=== PATIENT | female | born 1985 | race Caucasian/White ===

== ENCOUNTER 2021-03-17 11:37 | Inpatient (IN) ==
--- NOTE | 2021-03-17 12:18 | ERNOTE ---
Medical Problem HPI - General Chief Complaint: General Assessment Time Seen by Provider: 03/17/21 12:08 Source: patient Exam Limitations: no limitations - Immun/Allergies/Home Medications Immunizations: IMMUNIZATION HX Immunizations Up to Date Yes Allergies/Adverse Reactions: Allergies No Known Allergies Allergy (Verified 03/17/21 13:19) Home Medications: HOME MEDICATIONS NK 03/17/21 [Last Taken Unknown] - History of Present History Narrative: Patient has been losing weight for the past month or so approximately 20 pounds. She has had some nausea vomiting but lately has just had some lack of appetite. She has been a heavy drinker but stopped a couple of weeks ago. Timing: getting worse Severity: moderate Review of Systems - Review of Systems Constitutional: Present: chills, fatigue. Absent: recent illness, fever EYE: Absent: vision changes ENT: Absent: nose congestion, nasal drainage Respiratory: Absent: shortness of breath, cough Cardiology: Present: palpitations. Absent: chest pain Gastrointestinal/Abdominal: Present: See HPI Genitourinary: Absent: dysuria Musculoskeletal: Present: muscle pain - Diffuse Skin: Present: change in color - Yellow Neurological: Present: weakness - Generalized. Absent: headache Endocrine: Absent: excessive sweating Medical History (Last Reviewed 03/17/21 @ 13:12 by Denzel Hammonds DO) Allergic rhinitis Gastric ulcer Kidney stone Surgical History: Surgical History (Last Reviewed 03/17/21 @ 13:12 by Denzel Hammonds DO) No pertinent past surgical history Family History: Family History (Last Reviewed 03/17/21 @ 13:12 by Denzel Hammonds DO) Father Diabetes Mother Alive and well Social History: (Last Reviewed 03/17/21 @ 13:12 by Denzel Hammonds DO) Social History: Marital status: household members: family number of children: 2 current occupational status: employed Highest level of school completed/degree received: high school graduate Sexually Active: Yes Service: No Tobacco: Smoking Status: Former smoker tobacco type: cigarettes how long ago did patient quit smokin week Alcohol: alcohol intake: current alcohol intake frequency: 0-2 drinks per day Substance Use: substance use type: does not use Dietary Habits: caffeine: Yes Physical Exam - Physical Exam General Appearance: Present: wd/wn, alert, mild distress Head Exam: Present: normal inspection, no evidence of injury Eye Exam: PERRL: bilateral, Scleral icterus: bilateral Ears, Nose, Throat: Present: normal except - - Poor dental hygiene throughout Neck: Present: normal inspection, nontender Respiratory: Present: no respiratory distress, normal breath sounds, lungs clear Cardiovascular/Chest: Present: no murmur, tachycardia, other - Very thin. Absent: chest tenderness Gastrointestinal/Abdominal: Present: normal bowel sounds, tenderness - Mild epigastric left upper quadrant Back Exam: Present: normal inspection Extremity Exam: Present: normal range of motion, pedal edema - bilateral Neurological Exam: Present: alert, oriented, normal mood/affect, no motor/sensory deficits Skin Exam: Present: warm/dry, jaundice - mild Lymphatic Exam: Present: no adenopathy Progress - Results and Orders Patient's Lab Results:: I have reviewed the patient's lab results. - Vital Signs Patient's Vital Signs:: I have reviewed the patient's vital signs. Vital Signs: Vital Signs 03/17/21 11:49 Temperature 36.9 C Pulse Rate 113 H Respiratory Rate 17 Blood Pressure 99/63 O2 Sat by Pulse Oximetry 99 - Progress/Reassessment Chief Complaint: General Assessment Progress Note-Subjective: 03/17/21 16:[address] Taylor he did not feel like this was surgical and seemed to be primarily liver. Departure Clinical Impression: Jaundice Pancreatitis Qualifiers: Chronicity: acute Pancreatitis type: unspecified pancreatitis type Acute pancreatitis complication: no infection or necrosis Qualified Code(s): K85.90 - Acute pancreatitis without necrosis or infection, unspecified Pneumonia Qualifiers: Pneumonia type: due to unspecified organism Laterality: right Lung location: lower lobe of lung Qualified Code(s): J18.9 - Pneumonia, unspecified organism - Departure Disposition: Still a patient Condition: Good
[2021-03-17 12:19] LABS: Hematocrit 26.3 % (37.0-47.0); Hemoglobin 9.3 gm/dL (12.5-16.0); Mean Cell Volume 96.7 fl (78-100); Mean Corpuscular Hemoglobin 34.2 pg (27-31); Mean Corpuscular Hgb Conc 35.4 g/dl (32-36); Mean Platelet Volume 11.7 fl (8-12.5); Neutrophil # 14.1 K/mm3 (1.3-6.0); Neutrophil % 86.1 % (42-75.0); Platelet Count 338 K/mm3 (150-450); Red Blood Count 2.72 M/mm3 (4.2-5.4); Red Cell Distribution Width 16.9 % (11.5-14.0); White Blood Count 16.4 K/mm3 (4.0-10.5)
[2021-03-17 12:40] LABS: Albumin * 2.2 gm/dl (3.4-5.0); Anion Gap 11.1 mmol/L (6.8-13.8); BUN/Creatinine Ratio 19.3 (9.0-21.6); Bilirubin, Total 2.8 mg/dL (0.0-1.1); Ca. Corrected For Albumin 8.9 mg/dL (8.4-10.2); Calcium * 7.8 mg/dL (7.9-10.9); Carbon Dioxide 31.6 mmol/L (24-32.6); Potassium 2.7 mmol/L (3.4-4.6); Total Protein 6.8 gm/dL (6.2-8.2)
[2021-03-17 13:02] LABS: Urine Bilirubin 3 mg/dl (NEGATIVE); Urine Blood 50 /ul (NEGATIVE); Urine Ketone Negative (NEGATIVE); Urine Nitrite Negative (NEGATIVE); Urine Protein 15 mg/dL (NEGATIVE); Urine Urobilinogen 4 EU/dl (NORMAL)
[2021-03-17] MEDS ORDERED: DIATRIZOATE MEGLUMINE, SODIUM 30 ML BTL PO ONE (13:08)
[2021-03-17] MEDS ORDERED: NORMAL SALINE 1,000 ML IV ONE (13:16)
[2021-03-17 13:18] LABS: Cocaine Ur Negative (NEGATIVE); Urine Barbiturate Negative (NEGATIVE); Urine Opiates Negative (NEGATIVE); Urine PCP Negative (NEGATIVE); Urine THC Negative (NEGATIVE)
[2021-03-17 13:21] LABS: Urine Appearance Slightly Cloudy (CLEAR); Urine Bacteria 2+; Urine Benzodiazepines Positive (NEGATIVE); Urine Color Amber; Urine Hyaline Cast 0-5 /LPF; Urine WBC TRACE /hpf (0-5)
[2021-03-17 13:42] LABS: Prothrombin Time (Patient) 15.3 Seconds (9.1-10.7)
[2021-03-17 13:43] LABS: INR 1.5 INR (0.92-1.08); Partial Thrombolplastin Time 27.8 Seconds (24-32)
[2021-03-17] MEDS: POTASSIUM CHLORIDE IN WATER 100 ML IV SCH ×4 (15:34→19:30)
[2021-03-17] MEDS: NORMAL SALINE 1,000 ML IV PRN ×2 (15:48→23:28)
[2021-03-17] MEDS ORDERED: cefTRIAXone SODIUM 1,000 MG/100 ML BAG IV ONE (16:56)
[2021-03-17] MEDS ORDERED: KETOROLAC TROMETHAMINE 30 MG/ML VIAL IV ONE (17:24)
[2021-03-17] MEDS ORDERED: KETOROLAC TROMETHAMINE 30 MG/ML VIAL ONE (17:25)
--- NOTE | 2021-03-17 20:25 | HP ---
Chief Complaint - Chief Complaint Date of Service: 03/17/21 Time of Service: 20:24 Chief Complaint: RUQ pain History of Present Illness: 36-year-old female with past history of gastric ulcer presented to the ER today with complaints of abdominal pain, weight loss, nausea and vomiting. She denies blood in her emesis or stool. She has a history of alcoholism and states she was a heavy drinker but quit roughly 3 weeks ago. No signs of withdrawal. In the ER she was found to have a white count of 16.4, and elevated INR at 1.5 with an elevated PT of 15.3, she was hypokalemic at 2.7, she had a lactic acid initially at 3.3 that trended down to 1.2, and she had a lipase of 1012. Her AST was also elevated at 101 consistent with alcohol abuse and her total bili was 2.8. CT scan of her belly showed an enlarged liver measuring 20 cm cranioc audal but no inflammatory changes around the pancreas to suggest pancreatitis. Free fluid seen within the pelvis. Nondistended gallbladder. Patient was admitted for pancreatitis and hyperbilirubinemia. She got to the floor and evaluated she had some mild abdominal discomfort but otherwise was feeling fine. Her blood pressure has ranged anywhere from 110/70 -92/62. She has been tachycardic but I think this likely due to her being slightly dehydrated from poor intake and vomiting. Dr. Taylor looked at her CT scan after the ER provider notified him of her presentation and he was not concerned with any acute abdominal processes at this time and feels like her bilirubin is due to her alcoholism and recommended just monitor. Of note patient was also found to be anemic at 9.3. Patient admitted for acute pancreatitis and will receive fluids and started on clear liquid diet. We will repeat blood work in the morning. Medical History (Last Reviewed 03/17/21 @ 20:39 by Melody Sheets RN) Allergic rhinitis Gastric ulcer Kidney stone Surgical History: Surgical History (Last Reviewed 03/17/21 @ 20:39 by Melody Sheets RN) No pertinent past surgical history Family History: Family History (Last Reviewed 03/17/21 @ 20:39 by Melody Sheets RN) Father Diabetes Mother Alive and well Social History: (Last Updated 03/17/21 @ 20:41 by Melody Sheets RN) Social History: Marital status: household members: family number of children: 2 parent marital status: current occupational status: employed Highest level of school completed/degree received: high school graduate Sexually Active: Yes how many partners: 1 Service: No Tobacco: Smoking Status: Former smoker tobacco type: cigarettes how long ago did patient quit smokin week quit status: quit date established Alcohol: alcohol intake: former details: Quit 2-3 weeks ago Substance Use: substance use type: does not use Dietary Habits: caffeine: Yes Review Of Systems (GEN) - Review of Systems Generalized/Overall Review: Present: Weakness, Weight loss EENTM: Present: No Symptoms Reported Respiratory: Absent: Cough, Shortness of Breath Cardiac: Present: No Symptoms Reported Abdominal: Present: Nausea, Vomiting, Abdominal Pain. Absent: Hematemesis, Melena, Bright blood from rectum Genitourinary: Present: No Symptoms Reported Musculoskeletal: Present: No Symptoms Reported Neurological: Present: No Symptoms Reported Skin: Present: No Symptoms Reported Endocrine: Present: No Symptoms Reported Immunizations: IMMUNIZATION HX Immunizations Up to Date Yes Allergies/Adverse Reactions: Allergies Allergy/AdvReac Type Severity Reaction Status Date / Time No Known Allergies Allergy Verified 03/17/21 13:19 Home Medications: HOME MEDICATIONS NK 03/17/21 [Last Taken Unknown] Exam - Exam Vital Signs: Vital Signs - Last Taken Temp 36.2 C 03/17/21 19:47 Pulse 101 H 03/17/21 19:47 Resp 16 03/17/21 19:47 BP 94/53 03/17/21 19:47 Pulse Ox 98 03/17/21 19:47 Constitutional: Present: Alert, Oriented x3, Mild distress, Thin and frail ENT Exam: Present: hearing grossly normal, other - Poor dentition. Absent: nasal congestion, nasal drainage Eye Exam: bilateral eye: normal inspection, EOMI, scleral icterus Neck: Present: non-tender, supple Respiratory: Present: lungs clear, normal breath sounds Cardiovascular/Chest: Present: no murmur, tachycardia Peripheral Pulses: dorsalis-pedis (R): 2+, dorsalis-pedis (L): 2+ Abdomen: Present: soft, nondistended, tender Extremity: Present: non-tender, normal inspection, normal capillary refill Skin Exam: Present: warm/dry, jaundice - mild Appearance: Present: appropriate appearance Thoughts: Present: normal thought pattern, normal mood /affect. Absent: no apparent hallucination Diagnostic Studies: Abnormal Lab Results 03/17/21 03/17/21 03/17/21 Range/Units 12:10 12:10 12:10 WBC 16.4 H (4.0-10.5) K/mm3 RBC 2.72 L (4.2-5.4) M/mm3 Hgb 9.3 L (12.5-16.0) gm/dL Hct 26.3 L (37.0-47.0) % MCH 34.2 H (27-31) pg RDW 16.9 H (11.5-14.0) % Immature Gran % (Auto) 0.70 H (0.001-0.429) % Immature Gran # (Auto) 0.11 H (0.000-0.0310) K/mm3 Neutrophils % 86.1 H (42-75.0) % Lymphocytes % 5.9 L (20-51) % Neutrophils # 14.1 H (1.3-6.0) K/mm3 Lymphocytes # 0.97 L (1.5-3.5) k/mm3 Monocytes # 1.1 H (0.0-1.0) k/mm3 PT (9.1-10.7) Seconds INR (Anticoag Therapy) (0.92-1.08) INR Potassium 2.7 L (3.4-4.6) mmol/L Chloride 93 L (97-106) mmol/L Random Glucose 111 H (70-110) mg/dL Lactic Acid, Venous 3.3 H* (0.4-2.0) mmol/L Calcium 7.8 L (7.9-10.9) mg/dL Total Bilirubin 2.8 H (0.0-1.1) mg/dL AST 101 H (0-48) U/L Albumin 2.2 L (3.4-5.0) gm/dl Lipase 1012 H (73-393) U/L Urine Protein (NEGATIVE) mg/dL Urine Blood (NEGATIVE) /ul Urine Bilirubin (NEGATIVE) mg/dl Urine Urobilinogen (NORMAL) EU/dl Urine RBC (0-5) /hpf Urine WBC (0-5) /hpf Ur Epithelial Cells (0-5) /hpf Urine Bacteria (NONE) Hyaline Casts (NONE) /LPF U Benzodiazepines Scrn (NEGATIVE) 03/17/21 03/17/21 03/17/21 Range/Units 12:45 12:45 13:25 WBC (4.0-10.5) K/mm3 RBC (4.2-5.4) M/mm3 Hgb (12.5-16.0) gm/dL Hct (37.0-47.0) % MCH (27-31) pg RDW (11.5-14.0) % Immature Gran % (Auto) (0.001-0.429) % Immature Gran # (Auto) (0.000-0.0310) K/mm3 Neutrophils % (42-75.0) % Lymphocytes % (20-51) % Neutrophils # (1.3-6.0) K/mm3 Lymphocytes # (1.5-3.5) k/mm3 Monocytes # (0.0-1.0) k/mm3 PT 15.3 H (9.1-10.7) Seconds INR (Anticoag Therapy) 1.50 H (0.92-1.08) INR Potassium (3.4-4.6) mmol/L Chloride (97-106) mmol/L Random Glucose (70-110) mg/dL Lactic Acid, Venous (0.4-2.0) mmol/L Calcium (7.9-10.9) mg/dL Total Bilirubin (0.0-1.1) mg/dL AST (0-48) U/L Albumin (3.4-5.0) gm/dl Lipase (73-393) U/L Urine Protein 15 H (NEGATIVE) mg/dL Urine Blood 50 H (NEGATIVE) /ul Urine Bilirubin 3 H (NEGATIVE) mg/dl Urine Urobilinogen 4 H (NORMAL) EU/dl Urine RBC 10-25 H (0-5) /hpf Urine WBC Trace H (0-5) /hpf Ur Epithelial Cells >25 H (0-5) /hpf Urine Bacteria 2+ H (NONE) Hyaline Casts 0-5 H (NONE) /LPF U Benzodiazepines Scrn Positive H (NEGATIVE) Laboratory Results WBC 16.4 K/mm3 (4.0-10.5) H 03/17/21 12:10 RBC 2.72 M/mm3 (4.2-5.4) L 03/17/21 12:10 Hgb 9.3 gm/dL (12.5-16.0) L 03/17/21 12:10 Hct 26.3 % (37.0-47.0) L 03/17/21 12:10 MCV 96.7 fl (78-100) 03/17/21 12:10 MCH 34.2 pg (27-31) H 03/17/21 12:10 MCHC 35.4 g/dl (32-36) 03/17/21 12:10 RDW 16.9 % (11.5-14.0) H 03/17/21 12:10 Plt Count 338 K/mm3 (150-450) 03/17/21 12:10 MPV 11.7 fl (8-12.5) 03/17/21 12:10 Immature Gran % (Auto) 0.70 % (0.001-0.429) H 03/17/21 12:10 Immature Gran # (Auto) 0.11 K/mm3 (0.000-0.0310) H 03/17/21 12:10 Neutrophils % 86.1 % (42-75.0) H 03/17/21 12:10 Lymphocytes % 5.9 % (20-51) L 03/17/21 12:10 Monocytes % 6.4 % (0.0-9) 03/17/21 12:10 Eosinophils % 0.7 % (0.0-3.0) 03/17/21 12:10 Basophils % 0.2 % (0.0-1.0) 03/17/21 12:10 Nucleated RBC % 0.0 k/mm3 (0-1) 03/17/21 12:10 Neutrophils # 14.1 K/mm3 (1.3-6.0) H 03/17/21 12:10 Lymphocytes # 0.97 k/mm3 (1.5-3.5) L 03/17/21 12:10 Monocytes # 1.1 k/mm3 (0.0-1.0) H 03/17/21 12:10 Eosinophils # 0.1 k/mm3 (0.0-0.7) 03/17/21 12:10 Absolute Basophils 0.0 k/mm3 (0.0-0.1) 03/17/21 12:10 PT 15.3 Seconds (9.1-10.7) H 03/17/21 13:25 INR (Anticoag Therapy) 1.50 INR (0.92-1.08) H 03/17/21 13:25 PTT (James) 27.8 Seconds (24-32) 03/17/21 13:25 Sodium 133 mmol/L (132-142) 03/17/21 12:10 Plasma Sodium 133 mmol/L (130-142) 03/17/21 12:10 Potassium 2.7 mmol/L (3.4-4.6) L 03/17/21 12:10 Chloride 93 mmol/L (97-106) L 03/17/21 12:10 Carbon Dioxide 31.6 mmol/L (24-32.6) 03/17/21 12:10 Anion Gap 11.1 mmol/L (6.8-13.8) 03/17/21 12:10 BUN 16 mg/dL (3-23) 03/17/21 12:10 Creatinine 0.83 mg/dL (0.4-1.4) 03/17/21 12:10 Est GFR (Non-Af Amer) 82 mL/min (60-130) 03/17/21 12:10 BUN/Creatinine Ratio 19.3 (9.0-21.6) 03/17/21 12:10 Random Glucose 111 mg/dL (70-110) H 03/17/21 12:10 Lactic Acid, Venous 1.2 mmol/L (0.4-2.0) 03/17/21 17:00 Calcium 7.8 mg/dL (7.9-10.9) L 03/17/21 12:10 Calcium Adj for Albumin 8.9 mg/dL (8.4-10.2) 03/17/21 12:10 Total Bilirubin 2.8 mg/dL (0.0-1.1) H 03/17/21 12:10 AST 101 U/L (0-48) H 03/17/21 12:10 ALT 47 U/L (19-67) 03/17/21 12:10 Alkaline Phosphatase 122 U/L (50-170) 03/17/21 12:10 Total Protein 6.8 gm/dL (6.2-8.2) 03/17/21 12:10 Albumin 2.2 gm/dl (3.4-5.0) L 03/17/21 12:10 Amylase 100 U/L (25-115) 03/17/21 12:10 Lipase 1012 U/L (73-393) H 03/17/21 12:10 Urine Color [place] 03/17/21 12:45 Urine Appearance Slightly cloudy (CLEAR) 03/17/21 12:45 Urine pH 6.0 pH (5.0-7.0) 03/17/21 12:45 Ur Specific [place] 1.020 SP.GR. (1.005-1.010) 03/17/21 12:45 Urine Protein 15 mg/dL (NEGATIVE) H 03/17/21 12:45 Urine Glucose (UA) Negative mg/dL (NEGATIVE) 03/17/21 12:45 Urine Ketones Negative mg/dL (NEGATIVE) 03/17/21 12:45 Urine Blood 50 /ul (NEGATIVE) H 03/17/21 12:45 Urine Nitrate Negative (NEGATIVE) 03/17/21 12:45 Urine Bilirubin 3 mg/dl (NEGATIVE) H 03/17/21 12:45 Urine Urobilinogen 4 EU/dl (NORMAL) H 03/17/21 12:45 Ur Leukocyte Esterase Negative /ul (NEGATIVE) 03/17/21 12:45 Urine RBC 10-25 /hpf (0-5) H 03/17/21 12:45 Urine WBC Trace /hpf (0-5) H 03/17/21 12:45 Ur Epithelial Cells >25 /hpf (0-5) H 03/17/21 12:45 Urine Bacteria 2+ (NONE) H 03/17/21 12:45 Hyaline Casts 0-5 /LPF (NONE) H 03/17/21 12:45 Urine Culture Comments No culture indicated 03/17/21 12:45 Urine HCG, Qual Negative (NEGATIVE) 03/17/21 12:45 Urine Opiates Screen Negative (NEGATIVE) 03/17/21 12:45 Barbiturate Screen Negative (NEGATIVE) 03/17/21 12:45 Ur Phencyclidine Scrn Negative (NEGATIVE) 03/17/21 12:45 Urine Amphetamine Negative (NEGATIVE) 03/17/21 12:45 U Benzodiazepines Scrn Positive (NEGATIVE) H 03/17/21 12:45 Urine Cocaine Screen Negative (NEGATIVE) 03/17/21 12:45 Urine Marijuana (THC) Negative (NEGATIVE) 03/17/21 12:45 SARS-CoV-2 (PCR) Not detected (NotDetected) 03/17/21 17:18 Assessment/Plan - Narrative Narrative: 36-year-old female was admitted for acute pancreatitis but this appears to be a mild case. She does have hyperbilirubinemia and likely will need outpatient work-up with hepatology but I am assuming this is all due to her alcohol abuse. Minimal pain and no acute abnormality seen on her abdominal CT scan aside from an enlarged liver and some free fluid in her pelvis. Patient's physical exam fairly benign for the most part. Patient is likely dehydrated resulted in her mild tachycardia and soft blood pressures. She will receive IV fluid overnight and will repeat lab work in the morning. Patient is mildly anemic, again unsure of why whether this is due to malnutrition but she denies any bleeding in her emesis or in her stools. Will repeat CBC in the morning. Patient not requiring any pain medication, none is been offered ordered. Nurse will notify me if she does have any pain that needs to be addressed over the time being she is comfortable. Patient likely will be discharged home tomorrow as long as everything remains stable and she can establish with a PCP and have outpatient work-up for her liver pathology. No signs of withdrawal from her alcoholism, patient states she has been drinking. We will replenish her potassium today and repeat in the morning to make sure that this is has come up. Is under lab work remained stable and she can be discharged with further outpatient work-up. Patient was pleasant and had no other concerns. Not currently nauseous, not requiring any antinausea medicine. SCDs to be worn while in bed. Clears ordered for her diet. Nurse will call questions or concerns. - Assessment/Plan (1) Pancreatitis Problem: Acute Qualifiers: Chronicity: acute Pancreatitis type: unspecified pancreatitis type Acute pancreatitis complication: no infection or necrosis Qualified Code(s): K85.90 - Acute pancreatitis without necrosis or infection, unspecified (2) Hypokalemia Problem: Acute (3) Hyperbilirubinemia Problem: Acute (4) Jaundice Problem: Acute (5) Pneumonia Problem: Acute Qualifiers: Pneumonia type: due to unspecified organism Laterality: right Lung location: lower lobe of lung Qualified Code(s): J18.9 - Pneumonia, unspecified organism (6) Anemia Problem: Acute
[2021-03-17] MEDS ORDERED: POTASSIUM CITRATE 10 MEQ TABLET PO SCH (21:00)
[2021-03-17] MEDS: POTASSIUM CHLORIDE 10 MEQ TABLET.SA PO SCH (23:27)
[2021-03-18 06:22] LABS: Mean Cell Volume 96.4 fl (78-100); Mean Corpuscular Hemoglobin 34.1 pg (27-31); Mean Corpuscular Hgb Conc 35.3 g/dl (32-36); Mean Platelet Volume 11.6 fl (8-12.5); Neutrophil # 11.3 K/mm3 (1.3-6.0); Neutrophil % 84.3 % (42-75.0); Platelet Count 265 K/mm3 (150-450); Red Blood Count 2.23 M/mm3 (4.2-5.4); White Blood Count 13.4 K/mm3 (4.0-10.5)
[2021-03-18 07:20] LABS: Hematocrit 21.5 % (37.0-47.0)
[2021-03-18 07:21] LABS: Hemoglobin 7.6 gm/dL (12.5-16.0)
[2021-03-18] MEDS: NORMAL SALINE 1,000 ML IV PRN (07:28)
[2021-03-18] MEDS: POTASSIUM CHLORIDE 10 MEQ TABLET.SA PO SCH (08:20)
[2021-03-18 11:47] LABS: Anion Gap 13.7 mmol/L (6.8-13.8); BUN/Creatinine Ratio 25.5 (9.0-21.6); Calcium * 6.7 mg/dL (7.9-10.9); Carbon Dioxide 26.7 mmol/L (24-32.6); Estimated Creat Clear 145.4; Potassium 3.4 mmol/L (3.4-4.6)
[2021-03-18 16:40] LABS: Hematocrit 26.8 % (37.0-47.0); Hemoglobin 9.3 gm/dL (12.5-16.0); Mean Corpuscular Hgb Conc 34.7 g/dl (32-36); Mean Platelet Volume 11.3 fl (8-12.5); Platelet Count 264 K/mm3 (150-450); Red Blood Count 2.82 M/mm3 (4.2-5.4); White Blood Count 12.7 K/mm3 (4.0-10.5)
--- NOTE | 2021-03-18 17:02 | DS ---
(1) Pancreatitis Problem: Acute Qualifiers: Chronicity: acute Pancreatitis type: unspecified pancreatitis type Acute pancreatitis complication: no infection or necrosis Qualified Code(s): K85.90 - Acute pancreatitis without necrosis or infection, unspecified (2) Hypokalemia Problem: Acute (3) Hyperbilirubinemia Problem: Acute (4) Jaundice Problem: Acute (5) Pneumonia Problem: Acute Qualifiers: Pneumonia type: due to unspecified organism Laterality: right Lung location: lower lobe of lung Qualified Code(s): J18.9 - Pneumonia, unspecified organism (6) Anemia Problem: Acute Date of Discharge:: 03/18/21 Hospital Course: 36-year-old female came in for abdominal pain, nausea vomiting, not to be due to pancreatitis. Patient has long history of alcohol abuse but recently quit about 3 weeks ago. Pertinent lab findings include her to be slightly anemic at 9.3 initially which trended downward to 7.6. She was transfused 1 unit today prior to discharge and her hemoglobin responded and was back up to 9.3. She had a lipase of 1012. She had a potassium of 2.7 which was replaced and came up to 3.4 on day of discharge. She had an elevated AST at 102 and an elevated bilirubin at 2.8. Lactic acid was initially high at 3.3 which trended down upon repeat 1.2. CT scan of her abdomen showed her to have an enlarged liver at 20 cm craniocaudal. Some free fluid in her pelvis but otherwise pancreas was not inflamed and spleen was within normal limits. Coagulation studies showed her to have an elevated INR at 1.50 and a PT of 15.3. Patient was given IV fluids and allowed to eat clears on admission. Pain subsided and her nausea improved. Today she was felt much better and ready go home. She can have outpatient work- up for her hyperbilirubinemia and liver disease from alcoholism. Will repeat CBC in 3 days which is ordered and ambulatory orders. She can follow-up with me in 1 week for hospital follow-up and to get her set up with a GI specialist. Her vital signs been stable though she has been mildly tachycardic at times likely due to her dehydration. Otherwise she been afebrile and feels much better. Patient likely has acute gastritis from alcoholism which probably is the source of her bleeding. She was occult blood positive but there is no gregorio blood in her stool. She is denied any blood in her emesis or stools previously. We will start her on Carafate and omeprazole in the outpatient setting to allow her stomach to begin to heal. Our general surgeon did review her chart and was in agreement with this treatment plan. She can follow-up with him if her bleeding continues or her hemoglobin continues to fall after repeat. She may need an EGD and colonoscopy at some point but not indicated at this time. She is hemodynamically stable and feels well. Carafate and omeprazole sent to her pharmacy. She will follow-up with me in 1 week, she will call questions or concerns. 1.5-hour spent in her care today including rounding on her, explaining to her what was going on, developing treatment plan, discussing case with general surgeon, setting up follow-up appointments, and dictating this note. Procedures Performed: none Results and Findings: Lab Pending Results 03/17/21 12:10: WBC 16.4 H, RBC 2.72 L, Hgb 9.3 L, Hct 26.3 L, MCV 96.7, MCH 34.2 H, MCHC 35.4, RDW 16.9 H, Plt Count 338, MPV 11.7, Immature Gran % (Auto) 0.70 H, Immature Gran # (Auto) 0.11 H, Neutrophils % 86.1 H, Lymphocytes % 5.9 L, Monocytes % 6.4, Eosinophils % 0.7, Basophils % 0.2, Nucleated RBC % 0.0, Neutrophils # 14.1 H, Lymphocytes # 0.97 L, Monocytes # 1.1 H, Eosinophils # 0.1, Absolute Basophils 0.0 03/17/21 12:10: Sodium 133, Plasma Sodium 133, Potassium 2.7 L, Chloride 93 L, Carbon Dioxide 31.6, Anion Gap 11.1, BUN 16, Creatinine 0.83, Est GFR (Non-Af Amer) 82, BUN/Creatinine Ratio 19.3, Random Glucose 111 H, Calcium 7.8 L, Calcium Adj for Albumin 8.9, Total Bilirubin 2.8 H, AST 101 H, ALT 47, Alkaline Phosphatase 122, Total Protein 6.8, Albumin 2.2 L, Amylase 100, Lipase 1012 H 03/17/21 12:10: Lactic Acid, Venous 3.3 H* 03/17/21 12:45: Urine HCG, Qual Negative 03/17/21 12:45: Urine Color [place], Urine Appearance Slightly cloudy, Urine pH 6.0, Ur Specific [place] 1.020, Urine Protein 15 H, Urine Glucose (UA) Negative, Urine Ketones Negative, Urine Blood 50 H, Urine Nitrate Negative, Urine Bilirubin 3 H, Urine Urobilinogen 4 H, Ur Leukocyte Esterase Negative, Urine RBC 10-25 H, Urine WBC Trace H, Ur Epithelial Cells >25 H, Urine Bacteria 2+ H, Hyaline Casts 0-5 H, Urine Culture Comments No culture indicated 03/17/21 12:45: Urine Opiates Screen Negative, Barbiturate Screen Negative, Ur Phencyclidine Scrn Negative, Urine Amphetamine Negative, U Benzodiazepines Scrn Positive H, Urine Cocaine Screen Negative, Urine Marijuana (THC) Negative 03/17/21 13:25: PT 15.3 H, INR (Anticoag Therapy) 1.50 H, PTT (James) 27.8 03/17/21 17:00: Lactic Acid, Venous 1.2 03/17/21 17:18: SARS-CoV-2 (PCR) Not detected 03/18/21 06:11: Sodium 135, Plasma Sodium 135, Potassium 3.4 D, Chloride 98, Carbon Dioxide 26.7, Anion Gap 13.7, BUN 13, Creatinine 0.51, Est GFR (Non-Af Amer) 143 H D, BUN/Creatinine Ratio 25.5 H, Random Glucose 91, Calcium 6.7 L 03/18/21 06:16: WBC 13.4 H, RBC 2.23 L, Hgb 7.6 L*, Hct 21.5 L*, MCV 96.4, MCH 34.1 H, MCHC 35.3, RDW 17.0 H, Plt Count 265, MPV 11.6, Immature Gran % (Auto) 0.80 H, Immature Gran # (Auto) 0.11 H, Neutrophils % 84.3 H, Lymphocytes % 6.1 L, Monocytes % 7.0, Eosinophils % 1.5, Basophils % 0.3, Nucleated RBC % 0.0, Neutrophils # 11.3 H, Lymphocytes # 0.81 L, Monocytes # 0.9, Eosinophils # 0.2, Absolute Basophils 0.0 03/18/21 07:50: Blood Type A Negative, Antibody Screen Negative, Crossmatch See Detail 03/18/21 11:01: Stool Occult Blood Positive H 03/18/21 16:34: WBC 12.7 H, RBC 2.82 L, Hgb 9.3 L, Hct 26.8 L, MCV 95.0, MCH 33.0 H, MCHC 34.7, RDW 17.0 H, Plt Count 264, MPV 11.3 Discharge Location: Home Disposition: Home self-care Condition: Stable Discharge Activity: Activity as tolerated Discharge Diet: General/regular food Referrals: Guy Burnett DO [Staff Physician] - One Week Prescriptions (Any new or edited meds): Sucralfate [Carafate] 1 gm PO BID #28 tab Omeprazole 40 mg PO DAILY #30 capsule. Complete Home Medications List: Complete Home Medication List: Omeprazole 40 mg PO DAILY #30 capsule. 03/18/21 Sucralfate [Carafate] 1 gm PO BID #28 tab 03/18/21 Amb Orders for Discharge: Hemogram Time Frame: 03/22/21, Facility: [facility], Location: Laboratory
--- NOTE | 2021-03-18 17:30 | DS ---
(1) Pancreatitis Problem: Acute Qualifiers: Chronicity: acute Pancreatitis type: unspecified pancreatitis type Acute pancreatitis complication: no infection or necrosis Qualified Code(s): K85.90 - Acute pancreatitis without necrosis or infection, unspecified (2) Hypokalemia Problem: Acute (3) Hyperbilirubinemia Problem: Acute (4) Jaundice Problem: Acute (5) Pneumonia Problem: Acute Qualifiers: Pneumonia type: due to unspecified organism Laterality: right Lung location: lower lobe of lung Qualified Code(s): J18.9 - Pneumonia, unspecified organism (6) Anemia Problem: Acute Date of Discharge:: 03/18/21 Hospital Course: 36-year-old female came in for abdominal pain, nausea vomiting, not to be due to pancreatitis. Patient has long history of alcohol abuse but recently quit about 3 weeks ago. Pertinent lab findings include her to be slightly anemic at 9.3 initially which trended downward to 7.6. She was transfused 1 unit today prior to discharge and her hemoglobin responded and was back up to 9.3. She had a lipase of 1012. She had a potassium of 2.7 which was replaced and came up to 3.4 on day of discharge. She had an elevated AST at 102 and an elevated bilirubin at 2.8. Lactic acid was initially high at 3.3 which trended down upon repeat 1.2. CT scan of her abdomen showed her to have an enlarged liver at 20 cm craniocaudal. Some free fluid in her pelvis but otherwise pancreas was not inflamed and spleen was within normal limits. Coagulation studies showed her to have an elevated INR at 1.50 and a PT of 15.3. Patient was given IV fluids and allowed to eat clears on admission. Pain subsided and her nausea improved. Today she was felt much better and ready go home. She can have outpatient work- up for her hyperbilirubinemia and liver disease from alcoholism. Will repeat CBC in 3 days which is ordered and ambulatory orders. She can follow-up with me in 1 week for hospital follow-up and to get her set up with a GI specialist. Her vital signs been stable though she has been mildly tachycardic at times likely due to her dehydration. Otherwise she been afebrile and feels much better. Patient likely has acute gastritis from alcoholism which probably is the source of her bleeding. She was occult blood positive but there is no gregorio blood in her stool. She is denied any blood in her emesis or stools previously. We will start her on Carafate and omeprazole in the outpatient setting to allow her stomach to begin to heal. Our general surgeon did review her chart and was in agreement with this treatment plan. She can follow-up with him if her bleeding continues or her hemoglobin continues to fall after repeat. She may need an EGD and colonoscopy at some point but not indicated at this time. She is hemodynamically stable and feels well. Carafate and omeprazole sent to her pharmacy. She will follow-up with me in 1 week, she will call questions or concerns. 1.5-hour spent in her care today including rounding on her, explaining to her what was going on, developing treatment plan, discussing case with general surgeon, setting up follow-up appointments, and dictating this note. Procedures Performed: none Results and Findings: Pending Mircobiology Results 03/17/21 17:00 Blood Blood Culture - Preliminary NO GROWTH 24 HOURS 03/17/21 12:10 Blood Blood Culture - Preliminary NO GROWTH 24 HOURS Lab Pending Results 03/17/21 12:10: WBC 16.4 H, RBC 2.72 L, Hgb 9.3 L, Hct 26.3 L, MCV 96.7, MCH 34.2 H, MCHC 35.4, RDW 16.9 H, Plt Count 338, MPV 11.7, Immature Gran % (Auto) 0.70 H, Immature Gran # (Auto) 0.11 H, Neutrophils % 86.1 H, Lymphocytes % 5.9 L, Monocytes % 6.4, Eosinophils % 0.7, Basophils % 0.2, Nucleated RBC % 0.0, Neutrophils # 14.1 H, Lymphocytes # 0.97 L, Monocytes # 1.1 H, Eosinophils # 0.1, Absolute Basophils 0.0 03/17/21 12:10: Sodium 133, Plasma Sodium 133, Potassium 2.7 L, Chloride 93 L, Carbon Dioxide 31.6, Anion Gap 11.1, BUN 16, Creatinine 0.83, Est GFR (Non-Af Amer) 82, BUN/Creatinine Ratio 19.3, Random Glucose 111 H, Calcium 7.8 L, Calcium Adj for Albumin 8.9, Total Bilirubin 2.8 H, AST 101 H, ALT 47, Alkaline Phosphatase 122, Total Protein 6.8, Albumin 2.2 L, Amylase 100, Lipase 1012 H 03/17/21 12:10: Lactic Acid, Venous 3.3 H* 03/17/21 12:45: Urine HCG, Qual Negative 03/17/21 12:45: Urine Color [place], Urine Appearance Slightly cloudy, Urine pH 6.0, Ur Specific [place] 1.020, Urine Protein 15 H, Urine Glucose (UA) Negative, Urine Ketones Negative, Urine Blood 50 H, Urine Nitrate Negative, Urine Bilirubin 3 H, Urine Urobilinogen 4 H, Ur Leukocyte Esterase Negative, Urine RBC 10-25 H, Urine WBC Trace H, Ur Epithelial Cells >25 H, Urine Bacteria 2+ H, Hyaline Casts 0-5 H, Urine Culture Comments No culture indicated 03/17/21 12:45: Urine Opiates Screen Negative, Barbiturate Screen Negative, Ur Phencyclidine Scrn Negative, Urine Amphetamine Negative, U Benzodiazepines Scrn Positive H, Urine Cocaine Screen Negative, Urine Marijuana (THC) Negative 03/17/21 13:25: PT 15.3 H, INR (Anticoag Therapy) 1.50 H, PTT (James) 27.8 03/17/21 17:00: Lactic Acid, Venous 1.2 03/17/21 17:18: SARS-CoV-2 (PCR) Not detected 03/18/21 06:11: Sodium 135, Plasma Sodium 135, Potassium 3.4 D, Chloride 98, Carbon Dioxide 26.7, Anion Gap 13.7, BUN 13, Creatinine 0.51, Est GFR (Non-Af Amer) 143 H D, BUN/Creatinine Ratio 25.5 H, Random Glucose 91, Calcium 6.7 L 03/18/21 06:16: WBC 13.4 H, RBC 2.23 L, Hgb 7.6 L*, Hct 21.5 L*, MCV 96.4, MCH 34.1 H, MCHC 35.3, RDW 17.0 H, Plt Count 265, MPV 11.6, Immature Gran % (Auto) 0.80 H, Immature Gran # (Auto) 0.11 H, Neutrophils % 84.3 H, Lymphocytes % 6.1 L, Monocytes % 7.0, Eosinophils % 1.5, Basophils % 0.3, Nucleated RBC % 0.0, Neutrophils # 11.3 H, Lymphocytes # 0.81 L, Monocytes # 0.9, Eosinophils # 0.2, Absolute Basophils 0.0 03/18/21 07:50: Blood Type A Negative, Antibody Screen Negative, Crossmatch See Detail 03/18/21 11:01: Stool Occult Blood Positive H 03/18/21 16:34: WBC 12.7 H, RBC 2.82 L, Hgb 9.3 L, Hct 26.8 L, MCV 95.0, MCH 33.0 H, MCHC 34.7, RDW 17.0 H, Plt Count 264, MPV 11.3 Discharge Location: Home Disposition: Home self-care Condition: Stable Discharge Activity: Activity as tolerated Discharge Diet: General/regular food Referrals: Guy Burnett DO [Staff Physician] - One Week Problem Oriented Discharge Instructions to Patient/Family: Acute Pancreatitis, [id number] Additional Patient Instructions (free text): [facility] will call you tomorrow for your follow up appointment Complete Home Medications List: Complete Home Medication List: omeprazole 40 mg capsule,delayed release 40 mg PO DAILY #30 capsule. 03/18/21 sucralfate 1 gram tablet 1 g PO BID #28 tab 03/18/21 Amb Orders for Discharge: Hemogram Time Frame: 03/22/21, Facility: [facility], Location: Laboratory
[2021-03-18 18:07] VITALS: BP 120/73
== END 2021-03-18 18:07 | disposition home or self-care (01) | DRG 438 ==
LOC: ER 11:37 → MS 11:37 → OBSVTOIN 18:58 → MS 19:45
PROVIDERS: ADMIT Family Medicine; ATTEND Family Medicine